=== PATIENT | female | born 2005 ===

== ENCOUNTER 2023-08-03 16:05 | Outpatient (CLI) | payer OTHER | END 2023-08-03 16:06 | disposition home or self-care (01) | LOC: ULT 16:05 | PROVIDERS: ATTEND Student in an Organized Health Care Education/Training Program | DX: N93.9 Abnormal uterine and vaginal bleeding, unspecified (principal); R93.89 Abnormal findings on diagnostic imaging of other specified body structures | CPT/HCPCS: 76856 ==